=== PATIENT | female | born 1975 | race African-American/Black ===

== ENCOUNTER 2022-06-06 10:49 | Observation (INO) ==
[2022-06-06] MEDS ORDERED: LABETALOL 20 MG/4 ML SYRINGE IV STA (11:07)
[2022-06-06 11:37] LABS: Bilirubin,Urine Negative (Negative); Blood, Urine Negative (Negative); Glucose,Urine (UA) Negative (Negative); Ketones,Urine Negative (Negative); Mucus,Urine Occasional /LPF (Occasional); Nitrite,Urine Negative (Negative); Protein,Urine Negative (Negative); RBC,Urine <1 /HPF (0-4); Squamous Epithelial Cell,Urine Occasional /HPF (0-10); Urine Appearance CLEAR (Clear); Urine Color Straw (Yellow); Urine Specific Gravity 1.003 (1.001-1.035); Urine Urobilinogen < 2.0 eU/dL (<2.0)
[2022-06-06] MEDS ORDERED: ONDANSETRON 4 MG/2 ML VIAL ONE (11:54)
[2022-06-06 12:00] LABS: Basophils % 0.3 % (0.0-0.8); Eosinophils # 0.1 10*3/uL (0.0-0.87); Eosinophils % 1.3 % (0.00-10.9); Hematocrit 40.6 VOL% (35.7-47.0); Hemoglobin 13.3 GM/DL (12.0-16.0); Immature Granulocytes % 0.3 %; Immature Granulocytes Absolute 0.01 #; Lymphocytes # 1.7 10*3/uL (1.4-4.0); Lymphocytes % 44.2 % (21.3-54.2); Mean Corpuscular HGB Conc 32.8 GM/DL (32-36); Mean Corpuscular Volume 90.8 FL (87-102); Mean Platelet Volume 9.2 FL (9.6-12.0); Monocytes # 0.3 10*3/uL (0.11-0.8); Monocytes % 7.1 % (1.7-12.7); Neutrophils % 46.8 % (38.7-73.9); Platelet Count 309 T/CUMM (130-400); Red Blood Count 4.47 MC/CUMM (3.8-5.5); Red Cell Distribution Width 12.1 % (9.3-17.3); White Blood Count 3.8 T/CUMM (4-12)
[2022-06-06 12:19] LABS: Alanine Aminotransferase 19 U/L (13-56); Albumin 3.9 G/DL (3.4-5.0); Alkaline Phosphatase 87 U/L (45-117); Aspartate Amino Transferase 12 U/L (0-37); Blood Urea Nitrogen 10 MG/DL (7-18); Carbon Dioxide 29 MMOL/L (21-32); Chloride 109 MMOL/L (98-107); Glucose 83 MG/DL (74-106); Osmolality,Calculated 285.7 MOS/KG (273-304); PT Patient Result 10.8 SECS (10.1-12.1); Partial Thromboplastin Time 32.4 SECS (23.7-32.9); Potassium 3.6 MMOL/L (3.5-5.1); Sodium 145 MMOL/L (136-145); Total Protein 7.1 G/DL (6.4-8.2)
[2022-06-06] MEDS ORDERED: ONDANSETRON 4 MG/2 ML VIAL IV PRN (13:41)
[2022-06-06] MEDS ORDERED: ACETAMINOPHEN 325 MG TABLET PO PRN (13:41)
[2022-06-06] MEDS ORDERED: GLUCAGON 1 MG VIAL IM PRN (13:51)
[2022-06-06] MEDS ORDERED: DEXTROSE 10% 250 ML BAG IV PRN (13:51)
[2022-06-06 14:19] LABS: Barbiturates Screen,Urine Negative (Negative); Benzodiazepines Screen,Urine Negative (Negative); Cannabinoid Screen,Urine Negative (Negative); Opiate Screen,Urine Negative (Negative); Phencyclidine Screen,Urine Negative (Negative)
[2022-06-06] MEDS ORDERED: ONDANSETRON 4 MG/2 ML VIAL IV STA (15:14)
[2022-06-06] MEDS: ENOXAPARIN 40 MG/0.4 ML SYRINGE SUBCUT SCH (15:18)
[2022-06-06] MEDS: INSULIN LISPRO 100 UNIT/ML SUBCUT SCH ×2 (16:18→20:55)
[2022-06-06] MEDS ORDERED: DICLOFENAC SODIUM 75 MG TABLET PO PRN (16:23)
[2022-06-06] MEDS ORDERED: ALBUTEROL 1.25 MG/3 ML NEB RESP TX PRN (16:23)
[2022-06-07 02:13] LABS: Basophils % 0.2 % (0.0-0.8); Eosinophils # 0.1 10*3/uL (0.0-0.87); Eosinophils % 1.4 % (0.00-10.9); Hematocrit 36.8 VOL% (35.7-47.0); Hemoglobin 11.9 GM/DL (12.0-16.0); Immature Granulocytes % 0.2 %; Immature Granulocytes Absolute 0.01 #; Lymphocytes # 2.4 10*3/uL (1.4-4.0); Lymphocytes % 56.4 % (21.3-54.2); Mean Corpuscular HGB Conc 32.3 GM/DL (32-36); Mean Corpuscular Volume 90.9 FL (87-102); Mean Platelet Volume 9.3 FL (9.6-12.0); Monocytes # 0.3 10*3/uL (0.11-0.8); Monocytes % 6.9 % (1.7-12.7); Neutrophils % 34.9 % (38.7-73.9); Platelet Count 276 T/CUMM (130-400); Red Blood Count 4.05 MC/CUMM (3.8-5.5); Red Cell Distribution Width 12.2 % (9.3-17.3); White Blood Count 4.3 T/CUMM (4-12)
[2022-06-07 02:41] LABS: Calcium 8.8 MG/DL (8.5-10.1); Osmolality,Calculated 282.1 MOS/KG (273-304); Potassium 3.8 MMOL/L (3.5-5.1); Risk Ratio 2.57; Thyroid Stimulating Hormone 1.69 uIU/ml (0.358-3.74); VLDL Cholesterol 16.2 MG/DL
[2022-06-07 02:59] LABS: Eosinophils 1 % (0-10); Lymphocytes 57 % (20-55); Platelet Estimate Adequate; Total Cells Counted 100
[2022-06-07] MEDS: SPIRONOLACTONE 50 MG TABLET PO SCH (09:17)
[2022-06-07] MEDS: VALSARTAN 160 MG TABLET PO SCH (09:17)
[2022-06-07] MEDS: ASPIRIN CHEW 81 MG TABLET PO SCH (09:17)
[2022-06-07] MEDS: INSULIN LISPRO 100 UNIT/ML SUBCUT SCH ×4 (09:17→20:21)
[2022-06-07] MEDS: NEBIVOLOL 5 MG TABLET PO SCH (09:17)
[2022-06-07] MEDS: FAMOTIDINE 20 MG TABLET PO SCH (09:18)
[2022-06-07] MEDS ORDERED: LORazepam 1 MG TABLET PO ONE (09:46)
[2022-06-07] MEDS: ENOXAPARIN 40 MG/0.4 ML SYRINGE SUBCUT SCH (14:54)
[2022-06-08 04:14] VITALS: BP 128/84
[2022-06-08] MEDS: INSULIN LISPRO 100 UNIT/ML SUBCUT SCH ×2 (08:56→11:51)
[2022-06-08] MEDS ORDERED: DEXTROSE 50% 25 GM/50 ML VIAL IV PRN (09:13)
[2022-06-08] MEDS ORDERED: GLUCAGON 1 MG VIAL IM PRN (09:13)
[2022-06-08] MEDS: VALSARTAN 160 MG TABLET PO SCH (09:24)
[2022-06-08] MEDS: SPIRONOLACTONE 50 MG TABLET PO SCH (09:24)
[2022-06-08] MEDS: FAMOTIDINE 20 MG TABLET PO SCH (09:25)
[2022-06-08] MEDS: NEBIVOLOL 5 MG TABLET PO SCH (09:26)
[2022-06-08] MEDS: ASPIRIN CHEW 81 MG TABLET PO SCH (09:26)
[2022-06-08] MEDS ORDERED: OMEGA 3 ACID ETHYL ESTERS 1 GM CAPSULE PO SCH (21:00)
[2022-06-13] MEDS ORDERED: CYANOCOBALAMIN 1000 MCG/1 ML VIAL IM SCH (09:00)
== END 2022-06-08 14:25 ==
LOC: N.EDINP 10:49 → N.ED 10:49 → SUATTDRO 13:41 → N.2W 16:00
PROVIDERS: ADMIT Internal Medicine Geriatric Medicine; ATTEND Internal Medicine